=== PATIENT | male | born 1990 | race Caucasian/White ===

== ENCOUNTER 2018-05-06 16:11 | Emergency (ER) | payer OTHER ==
[2018-05-06 16:22] VITALS: RESP 18
[2018-05-06] MEDS ORDERED: HYDROcodone/APAP 5-325MG 1 EACH TAB PO STA (17:21)
--- NOTE | 2018-05-06 17:26 | ED ---
Upper Extremity HPI - General Chief Complaint: Extremity Injury, Upper Stated Complaint: rt hand injury - [facility] Time Seen by Provider: 05/06/18 16:59 Source: patient Mode of arrival: ambulatory Limitations: no limitations - History of Present Illness Initial Comments: 27-year-old male patient presents to the emergency department today for evaluation of injury to his right hand. Patient states at 4 PM he was at work pulling on a door frame with a sledgehammer. Patient states that they broke a piece loose and a metal part of the door came down and hit him in the back of the hand. Patient did sustain a laceration to the dorsal aspect of his hand, states that he did receive a tetanus vaccine 2 weeks ago. Patient states he is unable to move the index finger. He is complaining of a throbbing pain. Denies any numbness or tingling to the finger. Denies any other injuries. Patient denies any headache, neck pain, back pain, chest pain, shortness of breath, dizziness, weakness, abdominal pain, nausea, vomiting, or difficulties with bowel movements or urination. - Related Data Previous Rx's Medication Instructions Recorded Cephalexin [Keflex] 500 mg PO Q6H #28 cap 05/06/18 Ibuprofen [Motrin] 600 mg PO Q8HR PRN #30 tab 05/06/18 Allergies Allergy/AdvReac Type Severity Reaction Status Date / Time No Known Allergies Allergy Verified 05/06/18 16:22 Review of Systems ROS Statement: Those systems with pertinent positive or pertinent negative responses have been documented in the HPI. ROS Other: All systems not noted in ROS Statement are negative. Past Medical History Past Medical History: No Reported History History of Any Multi-Drug Resistant Organisms: None Reported Past Surgical History: No Surgical Hx Reported Past Psychological History: No Psychological Hx Reported Smoking Status: Current every day smoker Past Alcohol Use History: None Reported Past Drug Use History: None Reported General Exam Limitations: no limitations General appearance: alert, in no apparent distress, other (This is a well- developed, well-nourished adult male patient in no acute distress. Vital signs upon presentation are temperature 98.6F, pulse 93, respirations 18, blood pressure 136/81, pulse ox 95% on room air.) ENT exam: Present: normal exam, normal oropharynx, mucous membranes moist Respiratory exam: Present: normal lung sounds bilaterally. Absent: respiratory distress, wheezes, rales, rhonchi, stridor Cardiovascular Exam: Present: regular rate, normal rhythm, normal heart sounds. Absent: systolic murmur, diastolic murmur, rubs, gallop, clicks Extremities exam: Present: normal capillary refill, other (Patient has swelling to the dorsal aspect of the hand, ecchymosis over the right second MCP joint. There are two small lacerations one 1 cm, one 2 cm over the second MCP joint. Skin is otherwise pink, warm, and dry. Cap refills less than 3 seconds. Radial pulses 2+ and equal bilaterally.). Absent: normal inspection, full ROM ( Patient is not able to extend the right index finger, weak flexion of the finger. ), tenderness, pedal edema, joint swelling, calf tenderness Neurological exam: Present: alert, oriented X3, CN II-XII intact Psychiatric exam: Present: normal affect, normal mood Skin exam: Present: warm, dry, intact, normal color. Absent: rash Course Vital Signs 05/06/18 05/06/18 16:16 19:06 Temperature 98.6 F 98 F Pulse Rate 93 85 Respiratory 18 18 Rate Blood Pressure 136/81 122/68 O2 Sat by Pulse 95 99 Oximetry Procedures - Laceration Laceration #1 Indication: laceration Site: hand (Over the right second MCP joint) Size (cm): 2 Description: linear Depth: involves tendon Anesthetic Used: lidocaine 1% Anesthesia Technique: local infiltration Amount (mls): 3 Pre-repair: irrigated extensively Type of Sutures: nylon Size of Sutures: 5-0 Number of Sutures: 2 Technique: simple, interrupted Patient Tolerated Procedure: well, no complications Additional Comments: Loose closure due to tendon involvement Laceration #2 Indication: laceration Site: hand (Over the second MCP joint) Size (cm): 1 Description: linear Depth: involves tendon Anesthetic Used: lidocaine 1% Anesthesia Technique: local infiltration Amount (mls): 3 Pre-repair: irrigated extensively Type of Sutures: nylon Size of Sutures: 5-0 Number of Sutures: 1 Technique: simple, interrupted Patient Tolerated Procedure: well, no complications Additional Comments: Loose closure due to tendon involvement Medical Decision Making - Medical Decision Making 27-year-old male patient presented to the emergency department today for evaluation of laceration and hand injury after an incident at work. Physical examination did reveal 2 small lacerations over the second MCP joint on the right hand. Patient had week flexion of the index finger and no ability to extend the index finger. Concern was for tendon involvement of the laceration. Did discuss case with Dr. Martinez who instructs good irrigation and loose closure of the lacerations. He will see patient in the office tomorrow to explore the tendon. Did start patient on Keflex. He is instructed to leave dressing in place until he follows up with the physician. Return parameters were discussed in detail. He verbalizes understanding and agrees with this plan. - Radiology Data Radiology results: report reviewed, image reviewed 3 views of the right hand are obtained. This no fracture or dislocation noted. Joint spaces are normal. Metacarpals are intact. Impression by Dr. Naqvi shows negative right hand exam. Disposition Clinical Impression: Laceration of right hand, Injury of extensor tendon of right hand Disposition: HOME SELF-CARE Condition: Good Instructions: Care For Your Stitches (ED), Laceration (ED), Finger Laceration ( ED) Additional Instructions: Follow-up with orthopedics for reevaluation of your injury tomorrow. Keep wound wrapped until you're visit. Take antibiotics as directed. Take pain medications as directed. Monitor wound for signs or symptoms of infection including but not limited to redness, swelling, drainage of pus, fever, or chills. Return to the emergency department immediately for any new, worsening, or concerning symptoms. Prescriptions: Cephalexin [Keflex] 500 mg PO Q6H #28 cap Ibuprofen [Motrin] 600 mg PO Q8HR PRN #30 tab PRN Reason: Pain Is patient prescribed a controlled substance at d/c from ED?: No Referrals: Jeff Martinez MD [STAFF PHYSICIAN] - 1-2 days Time of Disposition: 18:51
--- NOTE | 2018-05-06 17:41 | XR ---
EXAMINATION TYPE: XR hand complete RT DATE OF EXAM: 05/06/2018 COMPARISON: NONE HISTORY: Laceration TECHNIQUE: 3 views FINDINGS: I see no fracture nor dislocation. Joint spaces are normal. Metacarpals are intact. IMPRESSION: Negative right hand exam.
[2018-05-06] MEDS ORDERED: LIDOCAINE 1% INJ 10MG/ML (20 ML MDV) SQ ONE (17:52)
[2018-05-06] MEDS ORDERED: ACET/COD 300 MG/30 MG STARTER PACK 6 TAB BTL PO STA (18:48)
[2018-05-06] MEDS ORDERED: IBUPROFEN 600 MG STARTER PACK 4 TAB BTL PO STA (18:48)
[2018-05-06] MEDS ORDERED: CEPHALEXIN 500MG STARTER PACK 4 CAP BTL PO STA (18:48)
[2018-05-06 19:07] VITALS: BP 122/68; PULSE 85; TEMP 98
== END 2018-05-06 19:07 | disposition home or self-care (01) ==
LOC: EC 16:11
DX: S61.411A Laceration without foreign body of right hand, initial encounter (principal); F17.200 Nicotine dependence, unspecified, uncomplicated; W22.8XXA Striking against or struck by other objects, initial encounter; Y92.69 Other specified industrial and construction area as the place of occurrence of the external cause; Y99.0 Civilian activity done for income or pay
CPT/HCPCS: 73130; 99283; J2001